=== PATIENT | female | born 1985 | race Caucasian/White ===

== ENCOUNTER 2018-07-02 07:30 | Inpatient (IN) | payer SELFPAY ==
[2018-07-04] MEDS ORDERED: LACTATED RINGERS 2,000 ML ONE (10:07)
[2018-07-04] MEDS ORDERED: BICITRA ONE ×2 (10:08→18:44)
[2018-07-04] MEDS ORDERED: REGLAN ONE ×2 (10:10→18:44)
[2018-07-04] MEDS ORDERED: ANCEF/STERILE WATER 2 GM/20 ML 2 GM/20 ML SYRINGE IV ONE (10:10)
[2018-07-04] MEDS ORDERED: PEPCID IV ONE ×2 (10:32→18:44)
[2018-07-04] MEDS ORDERED: REGLAN IV ONE (10:32)
[2018-07-04] MEDS ORDERED: BICITRA PO ONE (10:32)
--- NOTE | 2018-07-04 10:36 | Anesthesia Consultation ---
Anesthesia Consult and Med Hx Date of service: 07/04/18 - Airway Anesthetic Teeth Evaluation: Good ROM Head & Neck: Adequate Mental/Hyoid Distance: Adequate Mallampati Class: Class II Intubation Access Assessment: Good - Pulmonary Exam CTA: Yes - Pre-Operative Health Status ASA Pre-Surgery Classification: ASA2 Proposed Anesthetic Plan: Spinal - Pulmonary Hx Smoking: No Hx Asthma: No - Cardiovascular System Hx Hypertension: No - Central Nervous System Hx Neuromuscular Disorder: No - Endocrine Hx Thyroid Disease: No Hx Hypothyroidism: No Hx Hyperthyroidism: No
[2018-07-04] MEDS: LACTATED RINGERS 1,000 ML IV SCH ×2 (10:41→10:43)
[2018-07-04 10:56] LABS: Basophils # (Auto) 0.1 K/mm3 (0.0-0.1); Basophils % (Auto) 0.4 % (0.0-1.8); Eosinophils % (Auto) 0.2 % (0.0-4.3); Hematocrit 35.7 % (30.3-42.9); Hemoglobin 12.2 gm/dl (10.1-14.3); Lymphocytes # (Auto) 2.3 K/mm3 (1.2-5.4); Lymphocytes % (Auto) 16.7 % (13.4-35.0); Mean Corpuscular HGB Conc 34 % (30-34); Mean Corpuscular Volume 86 fl (79-97); Monocytes # (Auto) 0.7 K/mm3 (0.0-0.8); Monocytes % (Auto) 5.2 % (0.0-7.3); Platelet Count 246 K/mm3 (140-440); Red Blood Count 4.14 M/mm3 (3.65-5.03); Red Cell Distribution Width 15.2 % (13.2-15.2)
[2018-07-04] MEDS ORDERED: PITOCin/NS 20 UNIT/1000ML DRIP 20 UNITS/1,000 ML BAG IV SCH ×2 (11:00→21:00)
[2018-07-04] MEDS ORDERED: ANCEF/STERILE WATER 2 GM/20 ML 2 GM/20 ML SYRINGE IV NR (11:00)
--- NOTE | 2018-07-04 18:29 | History and Physical Report ---
History of Present Illness Date of examination: 07/04/18 Date of admission: 07/04/18 09:27 Chief complaint: SIUP at 39 weeks 39 weeks and 2 days not in labor. Previous C/section. Unwanted fertility. History of present illness: Patient is a 33 year old , LMP 10/12/17, EDC 07/09/18 at 39 weeks and 2 days gestation who was admitted for elective repeat C/section and tubal ligation. She denies any contractions, fluid leakage or bleeding. She reports good movement. tracing is CAT1. Past History Past Surgical History: section Family/Genetic History: none Social history: no significant social history - Obstetrical History Expected Date of Delivery: 07/09/18 Actual Gestation: 39 Week(s) 2 Day(s) : 2 Para: 1 Number of Living Children: 1 Medications and Allergies Allergies Allergy/AdvReac Type Severity Reaction Status Date / Time No Known Allergies Allergy Unverified 07/04/18 10:32 Active Meds: Active Medications Oxytocin/Sodium Chloride (Pitocin/Ns 20 Unit/1000ml Drip) 20 units in 1,000 mls @ 0 mls/hr IV TITR PRATIMA Lactated Ringer's (Lactated Ringers) 1,000 mls @ 2,250 mls/hr IV PREOP PRATIMA Stop: 07/05/18 11:27 Last Admin: 07/04/18 10:43 Dose: 2,250 mls/hr Documented by: - Vital Signs Vital signs: Vital Signs Pulse Pulse Ox 87 96 07/04/18 15:16 07/04/18 15:16 Temp Pulse Resp BP Pulse Ox 91 H 128/76 97 07/04/18 17:01 07/04/18 15:17 07/04/18 17:01 - Physical Exam Cardiovascular: Normal S1, Normal S2 Lungs: Positive: Clear to auscultation Vulva: both: normal Adnexa: both: normal Deep Tendon Reflex Grade: Normal +2 - Obstetrical FHR: category 1 Uterine Contraction Monitor Mode: External Cervical Dilatation: 0 Cervical Effacement Percentage: 0 station: -2 Uterine Contraction Pattern: Absent Results Result Diagrams: 07/04/18 10:05 Abnormal lab results 07/04/18 Range/Units 10:05 WBC 13.9 H (4.5-11.0) K/mm3 Seg Neutrophils % 77.5 H (40.0-70.0) % Seg Neutrophils # 10.8 H (1.8-7.7) K/mm3 All other labs normal. Assessment and Plan - Patient Problems (1) 39 weeks gestation of Current Visit: Yes Status: Acute (2) Previous section complicating Current Visit: Yes Status: Acute Plan to address problem: Admit to labor floor. Routine preop labs. IV hydration. Keep NPO. monitoring. Patient was counselled for repeat C/section and BTL. Risks, benefits, and alternatives of the procedure were discussed in detail with the patient which included but not limited to the risk of infection, hemorrhage requiring blood transfusion, injury to the bowel or bladder and blood vessels, r isk of the tubal ligation to fail to prevent which can result in unwanted pregnancies in the future. The patient expressed understanding, her questions were answered, and she gave informed consent. Anesthesia notified. (3) Unwanted fertility Current Visit: Yes Status: Acute
[2018-07-04] MEDS ORDERED: NACL 0.9% IR ONE (19:20)
[2018-07-04] MEDS ORDERED: WATER FOR IRRIG STERILE IR ONE (19:20)
[2018-07-04] MEDS ORDERED: DECADRON ONE (19:47)
[2018-07-04] MEDS ORDERED: METHERGINE IM ONE ×2 (19:50→19:51)
[2018-07-04] MEDS ORDERED: TORADOL ONE (20:09)
[2018-07-04] MEDS ORDERED: KETALAR ONE (20:10)
[2018-07-04] MEDS ORDERED: VERSED ONE (20:12)
[2018-07-04] MEDS ORDERED: DIPRIVAN 10 MG/ML IV ONE (20:24)
[2018-07-04] MEDS ORDERED: LANSINOH TP PRN (20:45)
[2018-07-04] MEDS ORDERED: ANUCORT-HC PR PRN (20:45)
[2018-07-04] MEDS ORDERED: ZOFRAN IV PRN ×2 (20:45→21:02)
[2018-07-04] MEDS ORDERED: MYLICON PO PRN (20:45)
[2018-07-04] MEDS ORDERED: SENOKOT PO PRN (20:45)
[2018-07-04] MEDS ORDERED: TORADOL IV PRN ×2 (20:45)
[2018-07-04] MEDS ORDERED: TYLENOL PO PRN (20:45)
[2018-07-04] MEDS ORDERED: MILK OF MAGNESIA PO PRN (20:45)
[2018-07-04] MEDS ORDERED: PHENERGAN PR PRN ×2 (20:45→21:02)
[2018-07-04] MEDS ORDERED: NARCAN 0.4 MG/1 ML IV PRN ×2 (20:45→21:02)
[2018-07-04] MEDS ORDERED: TUCKS PAD TP PRN (20:45)
[2018-07-04] MEDS ORDERED: MORPHINE IV PRN ×2 (20:45)
--- NOTE | 2018-07-04 20:48 | Operative Report ---
Operative Report Operative Report: Operative Report: Preoperative diagnosis 1. SIUP at 39 weeks and 2 days gestation not in labor. 2. Previous C/section. 3. Unwanted fertility. Postoperative diagnosis: 1. SIUP at 39 weeks and 2 days gestation not in labor. 2. Previous C/section. 3. Unwanted fertility. Procedure: 1. Repeat low-transverse section. 2. Bilateral tubal ligation via Pemoroy method. Surgeon: Dr. Oglesby Insurance Claims Adjuster: none Anesthesia: spinal. IVF: RL 1.5 liters EBL: 600 cc Urine: 300 cc clear Complications: none. Intraoperative findings: 1. A female found in an PRATIK position, delivered at 7;39 PM, Apgars 8 at 1 minute and 9 at 5 minutes, weight 6 lbs. 9 oz. 2. Normal fallopian tubes and ovaries bilaterally. Procedure details: Risks, benefits, and alternatives of the procedure were discussed in detail with the patient which included but not limited to the risk of infection, hemorrhage requiring blood transfusion, injury to the bowel or bladder and blood vessels, the risks of the tubal ligation to fail to prevent which can result in unwanted pregnancies in the future. The patient expressed understanding, her questions were answered, and she gave informed consent. The patient was taken to the operating room with an IV fluid infusing Ringers lactate. In the operating room, she was placed in a sitting position and given spinal anesthesia. She was then placed in a dorsal supine position with a leftward tilt. Baptiste catheter in Venodyne boots were placed. The abdomen was washed and she was prepared and draped in usual sterile fashion. After confirming adequate anesthesia, the Pfannenstiel skin incision was made in the lower abdomen about 2 cm above the pubic symphysis using the scalpel. This incision was carried down to the underlying fascia using the Bovie. The fascia was opened bilaterally in a curvilinear fashion using the Bovie. 2 straight Kocker clamps were used to grasp the upper edge of the fascia from which the underlying rectus abdominis muscles was dissected off using the Bovie. A similar procedure was done with the lower edge of the fascia to dissect the underlying uterine muscle. A quick survey of the anatomy revealed a gravid uterus, normal fallopian tubes and ovaries bilaterally. A bladder flap was created. Akin'O retractor was placed in the incision for proper visualization. A low transverse incision was made in the lower uterine segment. There was copious amount of clear amniotic fluids. The was found in an PRATIK position, the head was delivered atraumatically followed by the delivery of the shoulders and the rest of the body at 7:39 PM. The cord was clamped 2 and cut and the infant was handed off to the waiting local flatbed driver. The infant was a female, Apgars were 8 at 1 minute and 9 at 5 minutes, weight was 6 pounds and 9 ounces. Cord blood was collected. The placenta was delivered manually and it was complete with a three-vessel cord. The uterine cavity was cleaned of clots and debris using dry lap sponges. The uterine incision was repaired in a running locked fashion using 0 Vicryl sutures. A second layer of imbrication was placed. The gutters were cleaned of clots and debris using dry lap sponges. The right Fallopian tube was grasped with Madi clamps and a 2-cm segment was suture ligated using 0 chromic suture. A similar procedure was done with the left Fallopian tube where a 2-cm segment was suture ligated. Both segments were sent to pathology. After confirming adequate hemostasis, the instruments were removed from the abdominal cavity. The rectus muscle was reapproximated in an interrupted fashion using 0 Vicryl sutures. The fascia was closed in a running fashion using 0 Vicryl sutures. The subcutaneous adipose tissue was closed with 2.0 chromic sutures. The skin was closed in a subcutaneous fashion with 4 vicryl on a Candido needle. Sterile dressing was placed. The counts of laps, needles, sponges, and instruments were correct 2. The patient tolerated the procedure well, she was taken to the recovery room in a stable condition.
[2018-07-04] MEDS ORDERED: DILAUDID ONE (20:50)
[2018-07-04] MEDS ORDERED: SODIUM CHLORIDE FLUSH SYRINGE 10 ML IV NR ×2 (21:00→22:00)
[2018-07-04] MEDS ORDERED: PHENERGAN PO PRN (21:02)
--- NOTE | 2018-07-04 21:02 | Post Anesthesia Evaluation ---
- Post Anesthesia Evaluation Patient Participated: Yes Airway Patent: Yes Stable Respiratory Function: Yes Nausea/Vomiting: No Temp > 96.8F: Yes Pain Manageable: Yes Adequeate Hydration: Yes Anesthesia Complications: No Block Receding Appropriately: Yes Patient on Ventilator: No
--- NOTE | 2018-07-04 21:02 | Anesthesia Day of Surgery ---
Anesthesia Day of Surgery - Day of Surgery Patient Examined: Yes Patient H&P Reviewed: Yes Patient is NPO: Yes Giuseppe's Test: N/A
[2018-07-04] MEDS ORDERED: DILAUDID IV PRN (21:34)
[2018-07-05] MEDS ORDERED: D5LR 1,000 ML IV SCH (01:00)
[2018-07-05] MEDS: PERCOCET 5/325 PO PRN ×3 (05:37→21:01)
[2018-07-05 08:59] LABS: Hematocrit 26.9 % (30.3-42.9); Hemoglobin 8.9 gm/dl (10.1-14.3)
--- NOTE | 2018-07-05 11:02 | Progress Note ---
Assessment and Plan A: PPD#1 s/p Repeat c/s with BTL Pain well controlled Stable P: Routine PP/PO orders Encouraged ambulation in room Anticipate discharge home 24-48 hrs Subjective - Subjective Date of service: 07/05/18 Principal diagnosis: POD#1 s/p Repeat c/s with BTL Patient reports: appetite normal, voiding normally, pain well controlled, flatus, ambulating normally, no bowel movement : doing well Objective - Vital Signs Latest vital signs: Vital Signs Temp Pulse Resp BP BP Pulse Ox 07/05/18 07:43 98.3 F 77 20 114/67 07/05/18 05:37 18 07/05/18 04:00 98.5 F 85 18 117/67 07/04/18 23:15 97.4 F L 97 H 18 144/88 99 07/04/18 22:14 65 14 155/89 99 07/04/18 22:00 97.7 F 67 25 H 162/90 99 07/04/18 21:45 70 15 167/91 99 07/04/18 21:40 15 07/04/18 21:30 66 11 L 147/89 99 07/04/18 21:15 78 13 149/88 99 07/04/18 21:14 13 07/04/18 21:10 78 15 153/82 99 07/04/18 21:05 67 12 154/85 99 07/04/18 21:00 79 23 147/91 100 07/04/18 20:58 97.8 F 80 15 146/93 99 07/04/18 17:01 91 H 97 07/04/18 16:56 68 97 07/04/18 16:51 75 97 07/04/18 16:46 70 97 07/04/18 16:41 71 97 07/04/18 16:36 79 98 07/04/18 16:31 71 97 07/04/18 16:26 82 97 07/04/18 16:21 69 97 07/04/18 16:16 82 97 07/04/18 16:11 70 96 07/04/18 16:06 73 97 07/04/18 16:01 71 97 07/04/18 15:56 80 97 07/04/18 15:51 81 97 07/04/18 15:46 75 98 07/04/18 15:41 75 96 07/04/18 15:36 107 H 97 07/04/18 15:31 65 95 07/04/18 15:30 69 94 07/04/18 15:26 81 95 07/04/18 15:21 71 96 07/04/18 15:20 73 94 07/04/18 15:17 78 128/76 07/04/18 15:16 87 96 Intake and Output 07/04/18 07/05/18 07/05/18 23:59 07:59 15:59 Intake Total 1750 300 Output Total 500 1000 Balance 1250 -700 Intake: IV 1750 Intake, Free Water 300 Output: Urine 500 1000 Indwelling Catheter 400 Uretheral (Baptiste) 100 600 Other: Total, Output Amount 400 Estimated Blood Loss 600 - Exam Breasts: Present: normal Cardiovascular: Present: Regular rate, Normal S1, Normal S2, No murmurs Lungs: Present: Clear to auscultation, Normal air movement Abdomen: Present: normal appearance, soft, tenderness (as expected post-op), normal bowel sounds. Absent: distention Vulva: both: normal Uterus: Present: firm, fundal height below umbilicus (-1) Extremities: Present: normal Deep Tendon Reflex Grade: Normal +2 Incision: Present: normal, dry, intact, dressed (Pressure dressing CDI) - Labs Labs: Abnormal lab results 07/05/18 Range/Units 08:51 Hgb 8.9 L D (10.1-14.3) gm/dl Hct 26.9 L D (30.3-42.9) %
[2018-07-05] MEDS: FEOSOL PO SCH (12:50)
[2018-07-05] MEDS: PRENATAL VITAMIN PO SCH (12:50)
[2018-07-05] MEDS: IBUPROFEN PO PRN ×2 (12:50→21:01)
[2018-07-06] MEDS: PERCOCET 5/325 PO PRN ×2 (06:00→13:45)
--- NOTE | 2018-07-06 11:26 | Progress Note ---
Assessment and Plan A: /postop day 2 S/P repeat low transverse section with BTL. Anemia secondary to and blood loss, receiving iron supplementation. Dizziness and near syncope. Headache and visual disturbance. Heart murmur (patient states she has had this for years and has had it checked out in the past). P: Labs, hospitalist consult. Continue iron supplementation. Subjective - Subjective Date of service: 07/06/18 Principal diagnosis: /postop day 2 S/P repeat LTCS with BTL Interval history: /postop day 2 S/P repeat LTCS with BTL. Doing well. Pt. reports slight dizziness this morning. States she feels as if she will pass out when she walks. Patient reports mild headache and seeing "spots." Patient denies cough, chest pain, shortness of breath, nausea or vomiting, swelling, leg pain, fever, chills, flank pain, or heavy vaginal bleeding. She is voiding without difficulty, tolerating a regular diet, passing gas. Patient has anemia and she is receiving iron supplementation. Patient reports: appetite normal, voiding normally, dizzy ambulation, pain well controlled, flatus, no nauseated [place]: doing well Objective - Vital Signs Latest vital signs: Vital Signs Temp Pulse Resp BP BP Pulse Ox 07/06/18 06:00 18 07/06/18 00:00 98.4 F 74 16 119/74 07/05/18 21:01 18 07/05/18 15:59 98.4 F 78 20 114/70 96 07/05/18 12:17 98.8 F 84 16 124/76 97 Intake and Output 07/05/18 07/06/18 07/06/18 23:59 07:59 15:59 Intake Total 200 Output Total 800 Balance -600 Intake: Oral 200 Output: Urine 800 Void 800 Other: Total, Intake Amount 200 Total, Output Amount 800 - Exam Cardiovascular: Present: Regular rate, Normal S1, Normal S2, Other (murmur heard) Lungs: Present: Clear to auscultation Abdomen: Present: normal appearance, soft, normal bowel sounds. Absent: distention, tenderness, guarding, rigidity Uterus: Present: normal, firm, fundal height below umbilicus. Absent: bogginess, tenderness Extremities: Present: normal. Absent: tenderness, edema Incision: Present: normal, dry, intact, dressed
[2018-07-06 11:48] LABS: Basophils # (Auto) 0.1 K/mm3 (0.0-0.1); Basophils % (Auto) 0.4 % (0.0-1.8); Eosinophils # (Auto) 0.1 K/mm3 (0.0-0.4); Eosinophils % (Auto) 0.4 % (0.0-4.3); Hematocrit 25.9 % (30.3-42.9); Hemoglobin 8.6 gm/dl (10.1-14.3); Lymphocytes # (Auto) 2.4 K/mm3 (1.2-5.4); Mean Corpuscular HGB Conc 33 % (30-34); Mean Corpuscular Volume 88 fl (79-97); Monocytes # (Auto) 0.8 K/mm3 (0.0-0.8); Platelet Count 246 K/mm3 (140-440); Red Blood Count 2.95 M/mm3 (3.65-5.03); Red Cell Distribution Width 15.6 % (13.2-15.2)
--- NOTE | 2018-07-06 12:29 | Consultation ---
History of Present Illness - Reason for Consult Consult date: 07/06/18 Headache, Dizziness Requesting physician: SALAZAR CHAKRABORTY - History of Present Illness 33 YO Female with NO PMH POD #2 S/P LTCS with BTL. Consult placed for Headache and Dizziness. Pt seen and evaluated in her room. Pt denies fever, CHAMBERLAIN, NVD, Trauma, Productive cough, leg swelling, calf pain, shortness of breath, or recent ill contacts. Pt resting comfortably in bed. Pt states that headache resolved at time of exam. No reported nursing events at time of exam. Past History Past Medical History: No medical history, other (reviewed) Social history: no significant social history Family history: no significant family history (reviewed) Medications and Allergies Allergies Allergy/AdvReac Type Severity Reaction Status Date / Time No Known Allergies Allergy Unverified 07/04/18 10:32 Home Medications Medication Instructions Recorded Confirmed Last Taken Type Ibuprofen [Motrin] 800 mg PO Q8HR PRN #30 tablet 07/04/18 Unknown Rx oxyCODONE /ACETAMINOPHEN [Percocet 1 tab PO Q4HR #20 tab 07/04/18 Unknown Rx 5/325] Active Meds: Active Medications Acetaminophen (Tylenol) 650 mg PO Q4H PRN PRN Reason: Fever >100.5/CHAMBERLAIN Ferrous Sulfate (Feosol) 325 mg PO QDAY PRATIMA Last Admin: 07/05/18 12:50 Dose: 325 mg Documented by: Hydrocortisone Acetate (Anucort-Hc) 25 mg NC BID PRN PRN Reason: Hemorrhoids Hydromorphone HCl (Dilaudid) 0.5 mg IV Q30MIN PRN PRN Reason: Pain , Severe (7-10) Last Admin: 07/04/18 21:40 Dose: 0.5 mg Documented by: Oxytocin/Sodium Chloride (Pitocin/Ns 20 Unit/1000ml Drip) 20 units in 1,000 mls @ 0 mls/hr IV TITR PRATIMA Oxytocin/Sodium Chloride (Pitocin/Ns 20 Unit/1000ml Drip) 20 units in 1,000 mls @ 250 mls/hr IV DIRECT PRATIMA Dextrose/Lactated Ringer's (D5lr) 1,000 mls @ 125 mls/hr IV DIRECT PRATIMA Last Admin: 07/05/18 00:58 Dose: 125 mls/hr Documented by: Ibuprofen (Ibuprofen) 800 mg PO Q6H PRN PRN Reason: Pain, Mild (1-3) Last Admin: 07/05/18 21:01 Dose: 800 mg Documented by: Ketorolac Tromethamine (Toradol) 15 mg IV Q6H PRN PRN Reason: Pain, Mild (1-3) Stop: 07/09/18 20:44 Ketorolac Tromethamine (Toradol) 30 mg IV Q6H PRN PRN Reason: Pain, Moderate (4-6) Stop: 07/09/18 20:44 Magnesium Hydroxide (Milk Of Magnesia) 30 ml PO QHS PRN PRN Reason: Constip Unrelieved By Senna Morphine Sulfate (Morphine) 2 mg IV Q4H PRN PRN Reason: Pain, Moderate (4-6) Morphine Sulfate (Morphine) 4 mg IV Q4H PRN PRN Reason: Pain , Severe (7-10) Last Admin: 07/04/18 21:14 Dose: 4 mg Documented by: Multi-Ingredient Ointment (Lansinoh) 1 applic TP PRN PRN PRN Reason: dryness/cracking Multivitamins/Iron/Calcium ( Vitamin) 1 each PO QDAY PRATIMA Last Admin: 07/05/18 12:50 Dose: 1 each Documented by: Naloxone HCl (Narcan 0.4 Mg/1 Ml) 0.2 mg IV Q2MIN PRN PRN Reason: Res Rate </= 8 or 02 SAT < 92% Ondansetron HCl (Zofran) 4 mg IV Q8H PRN PRN Reason: Nausea And Vomiting Oxycodone/Acetaminophen (Percocet 5/325) 1 tab PO Q6H PRN PRN Reason: Pain, Moderate (4-6) Last Admin: 07/06/18 06:00 Dose: 1 tab Documented by: Promethazine HCl (Phenergan) 25 mg NC Q6H PRN PRN Reason: N/V IF NPO AND NO IV ACCESS Promethazine HCl (Phenergan) 25 mg PO Q6H PRN PRN Reason: Nausea And Vomiting Promethazine HCl (Phenergan) 25 mg NC Q6H PRN PRN Reason: Nausea And Vomiting Senna (Senokot) 17.2 mg PO QHS PRN PRN Reason: Constipation Simethicone (Mylicon) 80 mg PO Q6H PRN PRN Reason: Gas pain Witch Monica/Glycerin (Tucks Pad) 1 each TP PRN PRN PRN Reason: Hemorrhoids/cleansing/soothing Review of Systems Constitutional: no weight loss, no weight gain, no fever, no chills Ears, nose, mouth and throat: no ear pain, no ear discharge, no tinnitis, no decreased hearing, no nose pain, no nasal congestion Breasts: no change in shape, no swelling, no mass Cardiovascular: no chest pain, no orthopnea, no palpitations, no rapid/irregular heart beat, no edema, no syncope Respiratory: no cough, no hemoptysis, no shortness of breath Gastrointestinal: no nausea, no vomiting, no diarrhea, no constipation, no change in bowel habits Genitourinary Female: no pelvic pain, no flank pain, no menorrhagia, no dysuria Rectal: no pain, no incontinence, no bleeding Musculoskeletal: no neck pain, no shooting arm pain, no arm numbness/tingling, no leg numbness/tingling, no redness of joints Integumentary: no rash, no pruritis, no redness, no sores, no wounds Neurological: no paralysis, no weakness, no parathesias, no numbness, no tingling, no seizures Psychiatric: no anxiety, no memory loss, no change in sleep habits, no sleep disturbances, no hypersomnia, no change in appetite, no suicidal ideation, no disorientation Endocrine: no cold intolerance, no heat intolerance, no polyphagia, no excessive thirst, no polydipsia Hematologic/Lymphatic: no easy bruising, no easy bleeding, no lymphedema Allergic/Immunologic: no urticaria, no allergic rhinitis, no wheezing, no persistent infections, no anaphylaxis, no angioedema Exam - Constitutional Vitals: Temp Pulse Resp BP Pulse Ox 98.4 F 74 18 119/74 96 07/06/18 00:00 07/06/18 00:00 07/06/18 06:00 07/06/18 00:00 07/05/18 15:59 General appearance: Present: no acute distress, well-nourished - EENT Eyes: Present: PERRL ENT: hearing intact, clear oral mucosa - Neck Neck: Present: supple, normal ROM - Respiratory Respiratory effort: normal Respiratory: bilateral: CTA - Cardiovascular Heart Sounds: Present: S1 & S2. Absent: rub, click - Extremities Extremities: pulses symmetrical, No edema Peripheral Pulses: within normal limits - Abdominal General gastrointestinal: Present: soft, non-tender, non-distended, normal bowel sounds Female genitourinary: Present: normal - Integumentary Integumentary: Present: clear, warm, dry - Musculoskeletal Musculoskeletal: gait normal, strength equal bilaterally - Psychiatric Psychiatric: appropriate mood/affect, intact judgment & insight - Neurologic Neurologic: CNII-XII intact, moves all extremities Results - Labs CBC & Chem 7: 07/06/18 11:33 07/06/18 11:33 Labs: Abnormal lab results 07/06/18 Range/Units 11:33 WBC 16.2 H (4.5-11.0) K/mm3 RBC 2.95 L (3.65-5.03) M/mm3 Hgb 8.6 L (10.1-14.3) gm/dl Hct 25.9 L (30.3-42.9) % RDW 15.6 H (13.2-15.2) % Seg Neutrophils % 79.2 H (40.0-70.0) % Seg Neutrophils # 12.8 H (1.8-7.7) K/mm3 Assessment and Plan - Patient Problems (1) Headache Current Visit: Yes Status: Acute Plan to address problem: Resolved at time of exam. No neurologic deficit, no neurologic changes. If patient reports severe or recurrent headache will consider CT Brain without contrast. (2) Dizziness Current Visit: Yes Status: Acute Plan to address problem: Pt symptoms resolved at time of exam. Pt reports mild dizziness after dilaudid. No further testing at this time.
[2018-07-06 12:36] LABS: Alanine Aminotransferase 16 units/L (7-56); Albumin 2.6 g/dL (3.9-5); BUN/Creatinine Ratio 13; Blood Urea Nitrogen 9 mg/dL (7-17); Calcium 8.4 mg/dL (8.4-10.2); Hemolysis Index 3
[2018-07-06] MEDS: PRENATAL VITAMIN PO SCH (13:20)
[2018-07-06] MEDS: FEOSOL PO SCH (13:20)
[2018-07-06 23:38] LABS: Bilirubin,Urine NEG (Negative); Blood,Urine LG (Negative); Color,Urine Yellow (Yellow); Mucus,Urine FEW /HPF; Protein,Urine <15 mg/dL mg/dL (Negative); Urobilinogen,Urine < 2.0 mg/dL (<2.0)
[2018-07-07] MEDS: PERCOCET 5/325 PO PRN ×2 (01:05→10:06)
[2018-07-07] MEDS: FEOSOL PO SCH (10:06)
[2018-07-07] MEDS: PRENATAL VITAMIN PO SCH (10:06)
[2018-07-07 12:08] LABS: Basophils % (Auto) 0.3 % (0.0-1.8); Eosinophils # (Auto) 0.1 K/mm3 (0.0-0.4); Eosinophils % (Auto) 0.8 % (0.0-4.3); Hematocrit 25.6 % (30.3-42.9); Hemoglobin 8.5 gm/dl (10.1-14.3); Lymphocytes # (Auto) 1.8 K/mm3 (1.2-5.4); Lymphocytes % (Auto) 12.9 % (13.4-35.0); Mean Corpuscular HGB Conc 33 % (30-34); Mean Corpuscular Volume 88 fl (79-97); Monocytes # (Auto) 0.8 K/mm3 (0.0-0.8); Monocytes % (Auto) 5.3 % (0.0-7.3); Platelet Count 265 K/mm3 (140-440); Red Blood Count 2.92 M/mm3 (3.65-5.03)
[2018-07-07] MEDS: IBUPROFEN PO PRN (18:15)
--- NOTE | 2018-07-07 19:07 | Progress Note ---
Assessment and Plan A: /postop day 3 S/P repeat low transverse section with BTL. Heart murmur (not new). Dysuria with back pain. Anemia secondary to and blood loss. P: Continue iron supplementation. Continue ambulation. Initiate antibiotics. Urine culture pending. Repeat WBC in morning. Patient to follow up with cardiology as an outpatient re: heart murmur. Anticipate discharge tomorrow if temp. is normal overnight and patient remains stable. Subjective - Subjective Date of service: 07/07/18 Principal diagnosis: /postop day 3 S/P repeat LTCS with BTL Interval history: /postop day 3 S/P repeat LTCS with BTL. Patient states her headache has resolved and she no longer feels like she will pass out when she walks. She now complains of dysuria and lower back pain. She denies flank pain. She denies fever or chills. Urine C&S has been ordered and is pending. Patient is voiding often; she is passing gas, tolerating a regular diet, and ambulating well now. Patient denies cough, shortness of breath, chest pain, leg pain, or heavy vaginal bleeding. She reports mild incisional pain but states this is relieved once she takes the pain medication. Patient reports: appetite normal, voiding normally, pain well controlled, flatus, ambulating normally, other (low back pain and dysuria), no dizzy ambulation, no nauseated [place]: doing well Objective - Vital Signs Latest vital signs: Vital Signs Temp Pulse Resp BP Pulse Ox 07/07/18 16:23 98.2 F 77 16 123/74 100 07/07/18 08:44 97.9 F 90 20 125/80 100 07/07/18 01:05 18 07/07/18 00:55 98.0 F 82 17 114/73 98 Intake and Output 07/07/18 07/07/18 07/07/18 07:59 15:59 23:59 Intake Total 360 360 Output Total 600 Balance 360 -240 Intake: Oral 360 360 Output: Urine 600 Void 600 Other: Total, Intake Amount 360 360 Total, Output Amount 600 Voiding Method Toilet # Voids Void 4 # Bowel Movements 0 - Exam Cardiovascular: Present: Regular rate, Normal S1, Normal S2, Other (murmur heard) Lungs: Present: Clear to auscultation Abdomen: Present: normal appearance, soft, normal bowel sounds. Absent: distention, tenderness, guarding, rigidity Uterus: Present: normal, firm, fundal height below umbilicus. Absent: bogginess, tenderness Extremities: Present: normal. Absent: tenderness, edema Incision: Present: normal, dry, intact - Labs Labs: Abnormal lab results 07/06/18 07/07/18 Range/Units 22:00 11:36 WBC 14.1 H (4.5-11.0) K/mm3 RBC 2.92 L (3.65-5.03) M/mm3 Hgb 8.5 L (10.1-14.3) gm/dl Hct 25.6 L (30.3-42.9) % RDW 16.0 H (13.2-15.2) % Lymph % (Auto) 12.9 L (13.4-35.0) % Seg Neutrophils % 80.7 H (40.0-70.0) % Seg Neutrophils # 11.4 H (1.8-7.7) K/mm3 Urine WBC (Auto) 15.0 H (0.0-6.0) /HPF
[2018-07-07] MEDS: AUGMENTIN 500 MG PO SCH (22:01)
[2018-07-08] MEDS: IBUPROFEN PO PRN ×2 (06:04→16:04)
[2018-07-08] MEDS: PERCOCET 5/325 PO PRN (06:05)
[2018-07-08 08:49] LABS: Hematocrit 26.6 % (30.3-42.9); Hemoglobin 8.8 gm/dl (10.1-14.3); Mean Corpuscular HGB Conc 33 % (30-34); Mean Corpuscular Volume 88 fl (79-97); Platelet Count 291 K/mm3 (140-440); Red Blood Count 3.03 M/mm3 (3.65-5.03)
[2018-07-08] MEDS: PRENATAL VITAMIN PO SCH (10:29)
[2018-07-08] MEDS: AUGMENTIN 500 MG PO SCH (10:29)
[2018-07-08] MEDS: FEOSOL PO SCH (10:29)
--- NOTE | 2018-07-08 12:36 | Progress Note ---
Assessment and Plan - Patient Problems (1) S/P repeat low transverse Current Visit: Yes Status: Acute Plan to address problem: POD 4 - stable Discharge to home home Follow up at [facility] or [facility] [employer] as needed or in 1 week for incision check (2) S/P tubal ligation Current Visit: Yes Status: Acute (3) Anemia due to blood loss, acute Current Visit: Yes Status: Acute Plan to address problem: Asymptomatic Continue iron therapy (4) Urinary tract infection Current Visit: Yes Status: Acute Qualifiers: Urinary tract infection type: acute cystitis Plan to address problem: WBC count 9.7, temp 97.9 Preliminary Urine Culture - Enterococcus Species Continue augmentin Subjective - Subjective Date of service: 07/08/18 Principal diagnosis: POD #4; s/p Repeat LTCS with BTL Interval history: see H&P, Operative Report, 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 Progress Notes Patient reports: appetite normal, voiding normally, flatus, bowel movement, ambulating normally, other (denies fever, chills or dysuria), no dizzy ambulation [place]: doing well, nursing well Objective - Vital Signs Latest vital signs: Vital Signs Temp Pulse Resp BP BP Pulse Ox 07/08/18 08:42 97.9 F 70 18 102/62 99 07/08/18 01:26 97.7 F 74 18 115/74 97 07/07/18 16:23 98.2 F 77 16 123/74 100 Intake and Output 07/07/18 07/08/18 07/08/18 23:59 07:59 15:59 Intake Total 360 360 Output Total 600 Balance -240 360 Intake: Oral 360 Intake, Free Water 360 Output: Urine 600 Void 600 Other: Total, Intake Amount 360 Total, Output Amount 600 Voiding Method Toilet Toilet # Voids Void 1 # Bowel Movements 1 - Exam Cardiovascular: Present: Regular rate Lungs: Present: Clear to auscultation, Normal air movement Abdomen: Present: normal appearance, soft Vulva: both: normal Uterus: Present: normal, firm, fundal height below umbilicus Extremities: Present: normal Incision: Present: normal, dry, intact, other (steri strips in place) - Labs Labs: Abnormal lab results 07/08/18 Range/Units 08:14 RBC 3.03 L (3.65-5.03) M/mm3 Hgb 8.8 L (10.1-14.3) gm/dl Hct 26.6 L (30.3-42.9) % RDW 16.0 H (13.2-15.2) %
--- NOTE | 2018-07-08 12:45 | Discharge Summary ---
Providers - Providers Date of Admission: 07/04/18 09:27 Date of discharge: 07/08/18 Attending physician: BRYCE OCONNOR MD 07/06/18 11:40 Consult to Physician [CONS] Urgent Comment: Consulting Provider: ANTHONY DELGADILLO Physician Instructions: Reason For Exam: Dizziness, near syncope, headache, visual disturba Primary care physician: BRYCE OCONNOR MD Hospitalization Reason for admission: section, IUP at term Delivery: Procedure: bilateral tubal ligation, repeat low transverse Episiotomy: none Laceration: none Incision: normal, dry, intact, other (steri strips in place) Other procedures: tubal ligation complications: UTI Discharge diagnosis: IUP at term delivered [place] baby: female Hospital course: Complicated by UTI. On Augmentin. Condition at discharge: Stable Disposition: TO HOME OR SELFCARE - Discharge Diagnoses (1) S/P repeat low transverse Status: Acute (2) S/P tubal ligation Status: Acute (3) Anemia due to blood loss, acute Status: Acute Comment: Asymptomatic Continue iron therapy (4) Urinary tract infection Status: Acute Qualifiers: Urinary tract infection type: acute cystitis Comment: Complete course of antibiotics Plan - Discharge Medications Prescriptions: Amoxicillin/K Clav Tab [Augmentin 500 MG TAB] 1 each PO Q12HR #12 tablet Ferrous Sulfate [Feosol 325 MG tab] 325 mg PO QDAY #30 tablet Ibuprofen [Motrin] 800 mg PO Q8HR PRN #30 tablet PRN Reason: Pain, Moderate (4-6) oxyCODONE /ACETAMINOPHEN [Percocet 5/325] 1 tab PO Q4HR #20 tab - Provider Discharge Summary Activity: routine, no sex for 6 weeks, no heavy lifting 4 weeks, no strenuous exercise Diet: routine Instructions: routine Additional instructions: [] Smoking cessation referral if applicable(refer to patient education folder for contact #) [] Refer to [facility]'s [facility] Booklet Call your doctor immediately for: * Fever > 100.5 * Heavy vaginal bleeding ( >1 pad per hour) * Severe persistent headache * Shortness of breath * Reddened, hot, painful area to leg or breast * Drainage or odor from incision. 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
[2018-07-08 17:04] VITALS: BP 115/72
== END 2018-07-08 18:30 | disposition home or self-care (01) | DRG 783 ==
LOC: APU 07-04 09:27 → OB 07-04 22:46
PROVIDERS: ADMIT Obstetrics & Gynecology; ATTEND Obstetrics & Gynecology
PROC: 10D00Z1 Extraction of Products of Conception, Low, Open Approach (ICD-10-PCS; principal; 2018-07-04)
PROC: 0UT70ZZ Resection of Bilateral Fallopian Tubes, Open Approach (ICD-10-PCS; 2018-07-04)
DX: O34.211 Maternal care for low transverse scar from previous cesarean delivery (principal); O99.42 Diseases of the circulatory system complicating childbirth; D62 Acute posthemorrhagic anemia; O99.354 Diseases of the nervous system complicating childbirth; O23.13 Infections of bladder in pregnancy, third trimester; O99.02 Anemia complicating childbirth; R51 Headache; R01.1 Cardiac murmur, unspecified; Z3A.39 39 weeks gestation of pregnancy; Z37.0 Single live birth
CPT/HCPCS: 36415; 80053; 81001; 85014; 85018; 85025; 85027; 86592; 86850; 86900; 86901; 87076; 87086; 87186; 88302; G0378; J0690; J1100; J1170; J1885; J2210; J2250; J2270; J2590; J2704; J2765; J7120; J7121